=== PATIENT | female | born 1930 | race Caucasian/White ===

== ENCOUNTER 2018-02-16 08:00 | Observation (INO) ==
[2018-02-16 08:09] VITALS: BMI 28.3
--- NOTE | 2018-02-16 09:20 | Cardiology History & Physical ---
History of Present Illness Chief complaint: Syncope HPI: Saritha is an 88 year old female who is known to Dr. Perkins's practice with a history of HTN, HLD, orthostatic hypotension and CKD who presented to [facility] via EMS after reportedly having a syncopal episode on 02/08/18. She was admitted to observation and had a LINQ implanted and was discharged. She was seen yesterday in the clinic and her LINQ report shows new onset paroxysmal A Fib and was scheduled today for antiarrhythmic therapy on Flecainide. EKG showed SR with ASMI. She was started on Eliquis 5mg BID, stop Aspirin. Review of Systems - Constitutional Constitutional: Absent: chills, fatigue, fever(s), weakness - EENMT Eyes: Absent: blurry vision Balance: Absent: vertigo Mouth/Throat: Absent: sore throat - Cardiovascular Cardiovascular: Absent: chest pain, palpitations, syncope, dyspnea on exertion, orthopnea, edema, heart murmur Rhythm: Absent: abnormal rhythm Vascular: Absent: pedal edema - Respiratory Respiratory: Absent: cough, dyspnea, dyspnea on exertion - Gastrointestinal Gastrointestinal: Absent: abdominal pain, diarrhea, nausea, vomiting - Genitourinary Genitourinary: Absent: dysuria - Integumentary/Breasts Integumentary: Absent: rash - Neurological Neurological: Absent: dizziness - Endocrine Endocrine: Absent: palpitations PFSH Patient Stated Medical History Migraine Yes: years ago Cataracts Yes Glaucoma Yes Hypertension Yes 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 cardiac cath (March 2014). hysterectomy. ORIF right ankle 1984 with subsequent hardware removal; b/l bunionectomies. Family History: Family History (Last Updated 07/04/17 @ 10:29 by Alana Sandra MA) Mother Heart disease Brother Heart disease Sister Parkinson's disease - Social History Smoking status: Never smoker Substance use type: does not use Alcohol intake frequency: does not drink Household members: spouse Current occupational status: retired Current residence: Apartment/Private Home Medications Home Medications Medication Instructions Recorded Confirmed Type Anastrozole 1 mg PO DAILY 10/02/17 02/16/18 History Calcium Citrate/Vitamin D3 1 each PO DAILY 10/02/17 02/16/18 History [Calcium Citrate - Vit D Caplet] Multivitamin [One Daily] 1 each PO DAILY 10/02/17 02/16/18 History Ubidecarenone/Vit E Acet [Co Q-10 1 cap PO HS 10/02/17 02/16/18 History 100 mg Softgel] Cozaar (losartan) 100 mg tablet 100 mg PO DAILY #90 tab 12/12/17 02/16/18 Rx Acetaminophen/Diphenhydramine 1 tab PO HS 02/08/18 02/16/18 History [Acetaminophen Pm Caplet] Levothyroxine Sodium 100 mcg PO DAILY 02/08/18 02/16/18 History Pravastatin [Pravachol] 40 mg PO HS 02/08/18 02/16/18 History NIFEdipine XL [Procardia Xl] 60 mg PO DAILY #30 tab 02/09/18 02/16/18 Rx Apixaban [Eliquis] 2.5 mg PO BID 02/15/18 02/16/18 History CephALEXin [Keflex 500 mg] 500 mg PO TID 02/15/18 02/16/18 History Flecainide [Tambocor] 50 mg PO BID #60 tab 02/17/18 Rx Allergies Allergy/AdvReac Type Severity Reaction Status Date / Time Sulfa (Sulfonamide Allergy Verified 02/12/18 16:45 Antibiotics) atorvastatin AdvReac leg cramps Verified 02/12/18 16:45 mannitol [From Reclast] AdvReac dizziness/passing Verified 02/12/18 16:45 out water for injection,sterile AdvReac dizziness/passing Verified 02/12/18 16:45 [From Reclast] out zoledronic acid AdvReac dizziness/passing Verified 02/12/18 16:45 [From Reclast] out Exam Vital signs: Temperature 97.8 F 02/16/18 09:00 Pulse Rate 79 02/16/18 09:00 Respiratory Rate 20 02/16/18 09:00 Blood Pressure 156/79 H 02/16/18 09:00 Pulse Oximetry 100 02/16/18 09:00 - Constitutional no acute distress, well nourished, cooperative - Routine HEENT Exam Head: Present: normocephalic ENT: Present: mucous membranes moist - Routine Neck Exam Absent: JVD, carotid bruit - Routine Chest/Breast/Axilla Exam Chest wall: Absent: tenderness, pacemaker - Routine Respiratory Exam Present: CTA bilaterally, rales, wheezes - Routine Cardiovascular Exam Present: RRR, murmur (I/) - Routine Abdominal Exam Present: soft, non tender - Routine Extremities Exam Present: no edema - Routine Skin Exam Present: intact, dry, warm - Routine Neurological Exam Present: alert, oriented X3 - Routine Psychiatric Exam Present: normal affect, normal thought process Results 02/16/18 08:20 02/17/18 04:18 Cardiac Enzymes 02/16/18 Range/Units 08:20 AST 23 (14-36) U/L CBC 02/16/18 Range/Units 08:20 WBC 7.6 (4.5-11.0) T/MM3 RBC 3.73 L (4.00-5.20) M/MM3 Hgb 11.6 L (12-16) GM/DL Hct 34.6 L (36-46) % Plt Count 312 (130-400) T/MM3 Neut # (Auto) 4.1 (1.8-7.7) T/MM3 Lymph # (Auto) 2.3 (1-4.8) T/MM3 [place] # (Auto) 0.8 (0-0.8) T/MM3 Eos # (Auto) 0.3 (0-0.5) T/MM3 Baso # (Auto) 0.1 (0-0.2) T/MM3 Comprehensive Metabolic Panel 02/16/18 Range/Units 08:20 Sodium 145 H (134-144) MEQ/L Potassium 3.9 (3.6-5) MEQ/L Chloride 106 (98-107) MEQ/L Carbon Dioxide 25 (22-30) MEQ/L BUN 27.0 H (7-17) MG/DL Creatinine 1.5 H (0.7-1.2) mg/dL Glucose 141 H (65-110) MG/DL Calcium 9.8 (8.4-10.2) MG/DL AST 23 (14-36) U/L ALT 17 (1-35) U/L Alkaline Phosphatase 50 (38-126) U/L Total Protein 7.4 (6.3-8.2) g/dL Albumin 4.3 (3.5-5.0) g/dL Intake and Output 02/15/18 02/16/18 02/16/18 22:59 06:59 14:59 Other: Weight 180 lb 15.992 oz Patient Weight 02/17/18 06:59 Weight 180 lb 15.992 oz EKG interpretations - EKG EKG results cardiology: sinus rhythm - Dysrhythmias Ventricular dysrhythmias: ventricular premature complexes (occasional) - Blocks, axis, hypertrophy, ST abn AV and intraventricular conduction: 1 AV block QRS axis and voltage: left axis deviation (-30 to -90) - [place], pacemaker, normal Myocardial infarction: septal [place] (old age or indeterminate) Hospital Course This is a general summary of the patient's hospital course. For more details refer to the complete medical record. Time spent with patient: 25 - 35 minutes Resuscitation Status: Full Code Assessment and Plan - Attestation Attestation Narrative: 02/17/18 12:58 Recommendation After examining the patient I agree with the above assessment. I am involved in the formulation of the patient's plan of care. - Assessment and Plan (1) Syncope and collapse Status: Acute Patient has not had syncope since admission last week. (2) Paroxysmal atrial fibrillation Status: Acute She was seen yesterday in the clinic and her LINQ report shows new onset paroxysmal A Fib and was scheduled today for antiarrhythmic therapy on Flecainide. - She was started on Eliquis 5mg BID, stop Aspirin - Check Mag and TSH - EKG today is SR with 1st degree AVB, occasional PVCs, ASMI probably old (3) Essential (primary) hypertension Status: Chronic Continue current therapy with routine monitoring (4) Mixed hyperlipidemia Status: Chronic Patient takes Pravastatin, PCP manages (5) Chronic kidney disease Status: Chronic PCP manages
[2018-02-16] MEDS: FLECAINIDE 100 MG TABLET PO SCH ×2 (09:35→20:40)
[2018-02-16] MEDS: CEPHALEXIN 500 MG PO SCH ×2 (15:02→20:40)
[2018-02-16] MEDS: APIXABAN 2.5 MG PO SCH (20:40)
[2018-02-16] MEDS ORDERED: APAP/DIPHENHYDRAMINE 500 MG/25 MG TABLET PO SCH (21:00)
[2018-02-16] MEDS ORDERED: ANASTROZOLE 1 MG PO SCH (21:00)
[2018-02-16] MEDS ORDERED: COENZYME Q-10 200mg TABLET PO SCH (21:00)
[2018-02-16] MEDS ORDERED: PRAVASTATIN 40 MG PO SCH (21:00)
[2018-02-17] MEDS ORDERED: LEVOTHYROXINE 100 MCG TAB - PT OWN PO SCH (06:30)
[2018-02-17 07:20] VITALS: BP 147/72; PULSE 78; RESP 16; TEMP 97; O2SAT 97
[2018-02-17] MEDS: FLECAINIDE 100 MG TABLET PO SCH (08:37)
[2018-02-17] MEDS: APIXABAN 2.5 MG PO SCH (08:38)
[2018-02-17] MEDS: CEPHALEXIN 500 MG PO SCH (08:38)
[2018-02-17] MEDS ORDERED: CHOLECALCIFEROL PO SCH (09:00)
[2018-02-17] MEDS ORDERED: ANASTROZOLE 1 MG TABLET PO SCH (09:00)
[2018-02-17] MEDS ORDERED: LOSARTAN 100 MG TAB - PT OWN PO SCH (09:00)
[2018-02-17] MEDS ORDERED: CALCIUM CITRATE PO SCH (09:00)
[2018-02-17] MEDS ORDERED: CALCIUM 500 + VIT D 200 TABLET PO SCH (09:00)
[2018-02-17] MEDS ORDERED: NIFEDIPINE 60 MG PO SCH (09:00)
[2018-02-17] MEDS ORDERED: MULTI-VITAMIN PLAIN TABLET PO SCH (09:00)
[2018-02-17] MEDS ORDERED: [UNRECOGNIZED DRUG - OTHER] PO SCH (09:00)
--- NOTE | 2018-02-17 10:31 | Discharge Summary ---
<Mily Narvaez - Last Filed: 02/17/18 10:26> Discharge Information Date of admission: 02/16/18 07:49 Anticipated date of discharge: 02/17/18 Attending Physician: Brad Perkins MD Primary care physician: Aron Narvaez DO - Discharge Diagnosis (1) Syncope and collapse Status: Acute (2) Paroxysmal atrial fibrillation Status: Acute (3) Essential (primary) hypertension Status: Chronic (4) Mixed hyperlipidemia Status: Chronic (5) Chronic kidney disease Status: Chronic Atrial fibrillation - Laboratory Labs: 02/16/18 08:20 02/17/18 04:18 History of Present Illness HPI: Saritha is an 88 year old female who is known to Dr. Perkins's practice with a history of HTN, HLD, orthostatic hypotension and CKD who presented to [facility] via EMS after reportedly having a syncopal episode on 02/08/18. She was admitted to observation and had a LINQ implanted and was discharged. She was seen yesterday in the clinic and her LINQ report shows new onset paroxysmal A Fib and was scheduled today for antiarrhythmic therapy on Flecainide. EKG showed SR with ASMI. She was started on Eliquis 5mg BID, stop Aspirin. Hospital Course This is a general summary of the patient's hospital course. For more details refer to the complete medical record. Time spent with patient: 25 - 35 minutes Resuscitation Status: Full Code Exam Vital signs: Temperature 97.0 F 02/17/18 07:19 Pulse Rate 78 02/17/18 07:19 Respiratory Rate 16 02/17/18 07:19 Blood Pressure 147/72 H 02/17/18 07:19 Pulse Oximetry 97 02/17/18 07:19 Results 02/16/18 08:20 02/17/18 04:18 Comprehensive Metabolic Panel 02/17/18 Range/Units 04:18 Sodium 142 (134-144) MEQ/L Potassium 4.2 (3.6-5) MEQ/L Chloride 106 (98-107) MEQ/L Carbon Dioxide 25 (22-30) MEQ/L BUN 25.0 H (7-17) MG/DL Creatinine 1.2 D (0.7-1.2) mg/dL Glucose 125 H (65-110) MG/DL Calcium 9.2 (8.4-10.2) MG/DL Intake and Output 02/16/18 02/17/18 02/17/18 22:59 06:59 14:59 Intake Total 360 / 360 50 / 50 240 / 240 Output Total 600 / 600 900 / 900 650 / 650 Balance -240 / -240 -850 / -850 -410 / -410 Intake: Oral 360 / 360 50 / 50 240 / 240 Output: Urine 600 / 600 900 / 900 650 / 650 Other: Urine Appearance Clear Clear Clear Urine Color Yellow Yellow Yellow Urine Odor Normal Weight 179 lb 14.355 oz Patient Weight 02/18/18 06:59 Weight 179 lb 14.355 oz Discharge Plan - Med Rec/Dispo Referrals/Follow Up: Brad Perkins MD [Physician] - 03/16/18 1:30 pm [place] Instructions: Flecainide (By mouth) Prescriptions: New Flecainide [Tambocor] 50 mg PO BID #60 tab Continue Calcium Citrate/Vitamin D3 [Calcium Citrate - Vit D Caplet] 1 each PO DAILY Ubidecarenone/Vit E Acet [Co Q-10 100 mg Softgel] 1 cap PO HS Multivitamin [One Daily] 1 each PO DAILY Anastrozole 1 mg PO DAILY Acetaminophen/Diphenhydramine [Acetaminophen Pm Caplet] 1 tab PO HS Levothyroxine Sodium 100 mcg PO DAILY Pravastatin [Pravachol] 40 mg PO HS Apixaban [Eliquis] 2.5 mg PO BID CephALEXin [Keflex 500 mg] 500 mg PO TID NIFEdipine XL [Procardia Xl] 60 mg PO DAILY #30 tab Cozaar (losartan) 100 mg tablet 100 mg PO DAILY #90 tab - Disposition 01 Discharged Home, Self-Care - Dismissal Complete Discharge Instructions are:: Complete <Brad Perkins - Last Filed: 02/22/18 08:48> Discharge Information Date of admission: 02/16/18 07:49 Attending Physician: Brad Perkins MD Primary care physician: Aron Narvaez DO - Discharge Diagnosis (1) Syncope and collapse Status: Acute (2) Paroxysmal atrial fibrillation Status: Acute (3) Essential (primary) hypertension Status: Chronic (4) Mixed hyperlipidemia Status: Chronic (5) Chronic kidney disease Status: Chronic - Laboratory Labs: 02/16/18 08:20 02/17/18 04:18 Hospital Course This is a general summary of the patient's hospital course. For more details refer to the complete medical record. Exam Vital signs: Temperature 97.0 F 02/17/18 07:19 Pulse Rate 78 02/17/18 07:19 Respiratory Rate 16 02/17/18 07:19 Blood Pressure 147/72 H 02/17/18 07:19 Pulse Oximetry 97 02/17/18 07:19 Results 02/16/18 08:20 02/17/18 04:18 Attestation Narriative - Attestation Attestation Narrative: 02/22/18 08:47 Recommendation After examining the patient I agree with the above assessment. I am involved in the formulation of the patient's plan of care.
[2018-02-17] MEDS ORDERED: CO Q PO SCH (21:00)
== END 2018-02-17 10:50 | disposition home or self-care (01) ==
LOC: SRG
PROVIDERS: ADMIT Internal Medicine Cardiovascular Disease; ATTEND Internal Medicine Cardiovascular Disease